=== PATIENT | female | born 1985 | race Caucasian/White ===

== ENCOUNTER 2018-04-22 10:26 | Emergency (ER) | payer MEDICAID ==
[~2018-04-22] VITALS: Ht 170.2 cm; Wt 114.4 kg
[2018-04-22 10:43] VITALS: BP 144/108
[2018-04-22 11:06] LABS: URINE HCG NEGATIVE (NEG)
[2018-04-22 11:10] LABS: CLARITY,URINE SLIGHTLY CLOUDY (Clear); COLOR,URINE YELLOW (Yellow); GLUCOSE, URINE NEGATIVE (Neg); KETONES,URINE NEGATIVE (Neg); LEUKOCYTE ESTERASE ,URINE NEGATIVE (Neg); NITRITES, URINE NEGATIVE (Neg); OCCULT BLOOD,URINE NEGATIVE (Neg); PH,URINE 6.5 (4.8-8.0); PROTEIN,URINE NEGATIVE (Neg); UROBILINOGEN,URINE 0.2 E.U/dL (0.2-1.0)
[2018-04-22 11:16] LABS: UA COLLECTION TYPE CLN CATCH MIDSTREAM
[2018-04-22 11:17] LABS: BACTERIA,URINE 2+ /HPF (Neg); MUCUS STRANDS FEW /LPF (Neg); SQUAMOUS EPITHELIAL CELL,UR MODERATE /LPF (FEW); WBC,URINE 0-4 /HPF (0-4)
[2018-04-22] MEDS ORDERED: CefTRIAXone 250MG IM Kit w/LIDOcaine IM ONE (12:30)
[2018-04-22] MEDS ORDERED: metroNIDAZOLE 500mg tablet PO ONE (12:30)
[2018-04-22] MEDS ORDERED: azithromycin 250mg tablet PO ONE (12:30)
== END 2018-04-22 12:53 | disposition home or self-care (01) ==
LOC: ER 10:27
DX: A64 Unspecified sexually transmitted disease (principal); L08.9 Local infection of the skin and subcutaneous tissue, unspecified; F17.200 Nicotine dependence, unspecified, uncomplicated; F12.90 Cannabis use, unspecified, uncomplicated; E66.9 Obesity, unspecified
CPT/HCPCS: 36415; 81001; 81025; 87491; 87591; 96372; 99283; J0696; J3490